=== PATIENT | female | born 1965 | race Caucasian/White ===

== ENCOUNTER → 2020-07-20 | Outpatient (CLI) | payer BC, OTHER ==
--- NOTE | 2020-07-21 09:13 | REP ---
INDICATION: LUMBAR RADICULOPATHY. COMPARISON: None. TECHNIQUE: Sagittal T1, T2, stir images of the lumbar spine obtained. Axial T1 and T2 weighted images obtained. FINDINGS: There is [id number] multilevel degenerative disc disease with loss of disc height and disc desiccation seen diffusely throughout the lumbar spine. Vertebral heights are overall preserved. No nisha malalignments. Conus ends normally at L1 level. Degenerative disc disease is slightly more progressed at the L5-S1 level. On the sagittal T2 weighted images, no limiting canal stenosis. Conus ends normally at L1 level. Schmorl's nodes are seen in the inferior endplates of L1 and L2. On the review of axial images, At L1-2 global disc bulge without significant canal or foraminal narrowing At L2-3 disc bulge with mild canal narrowing and mild bilateral foraminal narrowing. At L3-4 disc bulge with mild canal narrowing and mild bilateral foraminal narrowing. At L4-5 disc bulge with mild canal narrowing and mild bilateral foraminal narrowing. At L5-S1 loss of disc height with mild canal narrowing and [id number] bilateral foraminal narrowing. On the STIR images, no significant stir signal abnormality to suggest soft tissue or ligamentous injury. IMPRESSION: 1. Oydk-kw-[id number] multilevel degenerative disc disease. 2. No limiting canal or foraminal stenosis. No disc herniation identified. <Electronically signed by Harry Porras > 07/21/20 [id number]
== END ==
LOC: M PLARAD 14:42
PROVIDERS: ATTEND Pain Medicine Interventional Pain Medicine
DX: M54.16 Radiculopathy, lumbar region (principal); M51.36 Other intervertebral disc degeneration, lumbar region; M51.37 Other intervertebral disc degeneration, lumbosacral region

== ENCOUNTER → 2020-08-13 | Outpatient (CLI) | payer BC, OTHER ==
--- NOTE | 2020-08-14 16:09 | REPVR ---
PROCEDURE INFORMATION: Exam: MR Left Lower Extremity Joint Without Contrast; Hip Exam date and time: 08/13/2020 2:03 PM Age: 54 years old Clinical indication: Left; Patient HX: Lt hip pain; Additional info: Oa lt hip R/O avn TECHNIQUE: Imaging protocol: MR of the Left lower extremity joint without contrast. Exam focused on the hip. COMPARISON: No relevant prior studies available. FINDINGS: There is mild left hip joint osteoarthrosis. There is no evidence of acute fracture or dislocation. Bone marrow signal is normal. Alignment is anatomic. There is moderate tendinopathy and partial-thickness tearing at the gluteus medius and minimus insertions with associated soft tissue swelling. There is a small amount of loculated fluid in the greater trochanteric bursa. There is mild tendinopathy at the hamstring origins. The visualized muscles and tendons about the hip are otherwise normal normal in appearance. The ligamentum teres and transverse acetabular ligament are intact. There is no significant hip joint effusion. Evaluation of the acetabular labrum is suboptimal without intra-articular contrast. No obvious labral tear is identified. IMPRESSION: 1. No evidence of avascular necrosis. 2. Moderate tendinopathy and partial-thickness tearing at the gluteus medius and minimus insertions with associated soft tissue swelling and greater trochanteric bursitis. 3. Additional findings, as above. Electronically signed by: Wilfredo Steven On 08/14/2020 16:08:57 PM
== END ==
LOC: M RAD 13:14
PROVIDERS: ATTEND Physician Assistant
DX: M16.12 Unilateral primary osteoarthritis, left hip (principal); M70.62 Trochanteric bursitis, left hip

== ENCOUNTER → 2020-08-22 | Outpatient (REF) | payer BC, OTHER ==
[2020-08-23 12:58] LABS: C REACTIVE PROTEIN QUANTITATIV < 0.30 MG/DL (0.00-0.30); RHEUMATOID FACTOR QUANT < 10.0 IU/ML (<15.0)
== END ==
LOC: M LABDRAWC 11:56
PROVIDERS: ATTEND Physician Assistant
DX: M16.12 Unilateral primary osteoarthritis, left hip (principal)

== ENCOUNTER 2020-12-25 20:06 | Emergency (ER) | payer BC, OTHER ==
[~2020-12-25] VITALS: Ht 172.7 cm; Wt 111.4 kg
[2020-12-25] MEDS ORDERED: OTEZ1TAB3 PO (20:15)
[2020-12-25] MEDS ORDERED: LIDOCAINE 2% MDV 20ML VIAL SC ONE (22:15)
--- NOTE | 2020-12-26 00:18 | REPVR ---
PROCEDURE INFORMATION: Exam: XR Left Tibia and Fibula Exam date and time: 12/25/2020 10:49 PM Age: 55 years old Clinical indication: Injury or trauma; Fall; Laceration; Lower leg; Left; Foreign body involvement not specified; Additional info: Fall, extensive laceration TECHNIQUE: Imaging protocol: XR Left tibia and fibula. Views: 2 views. COMPARISON: No relevant prior studies available. FINDINGS: Bones/joints: No acute fracture. No dislocation. Moderate plantar calcaneal spur. Soft tissues: Multiple chronic soft tissue calcifications. Soft tissue wound at the ventral aspect of the lower leg. No foreign body. IMPRESSION: 1. No acute fracture. 2. Soft tissue wound at the ventral aspect of the lower leg. 3. No foreign body. Electronically signed by: Ronny Alfred On 12/26/2020 00:18:05 AM
[2020-12-26] MEDS ORDERED: NEOSPORIN TOP OINT 15GM TOP STA (00:51)
[2020-12-26] MEDS ORDERED: CEPHALEXIN SUSP POWDER 250MG/5ML BTL 100ML PO ONE (00:55)
[2020-12-26] MEDS ORDERED: NORCO 5/325MG TABLET (BULK FOR ED) PO ONE (00:55)
[2020-12-26] MEDS ORDERED: CEPH500C PO (01:10)
[2020-12-26] MEDS ORDERED: CEPHALEXIN 500 MG CAP PO ONE (01:10)
[2020-12-26 01:25] VITALS: BP 147/82
== END 2020-12-26 01:38 | disposition home or self-care (01) ==
LOC: M ED 20:06
DX: S81.812A Laceration without foreign body, left lower leg, initial encounter (principal); W10.8XXA Fall (on) (from) other stairs and steps, initial encounter; Y92.009 Unspecified place in unspecified non-institutional (private) residence as the place of occurrence of the external cause; Y93.9 Activity, unspecified; Y99.9 Unspecified external cause status; Z88.1 Allergy status to other antibiotic agents; Z98.84 Bariatric surgery status

== ENCOUNTER 2021-01-05 10:38 | Emergency (ER) | payer BC, OTHER ==
[~2021-01-05] VITALS: Ht 172.7 cm; Wt 110.0 kg
[~2021-01-05 10:38] MED LIST: CEPH500C PO; OTEZ1TAB3 PO
--- NOTE | 2021-01-05 12:13 | REP ---
INDICATION: recent deep laceration, new tingling left foot COMPARISON: None. TECHNIQUE: Real time compression and duplex Doppler interrogation of the left lower extremity deep venous system is performed, including the right common femoral vein.Compression of the left peroneal and posterior tibial veins is performed. FINDINGS: The left common femoral, superficial femoral and popliteal veins are fully compressible with transducer pressure and demonstrate normal spontaneous and phasic flow, without evidence of deep venous thrombosis.The right common femoral vein demonstrates no thrombus.The visualized left peroneal and posterior tibial veins demonstrate no thrombus. IMPRESSION: No evidence of deep venous thrombosis of the left lower extremity femoral popliteal venous system.No thrombus in the visualized left peroneal and posterior tibial veins. <Electronically signed by Mason King > 01/05/21 [id number]
[2021-01-05 14:21] VITALS: BP 138/76
[2021-01-05] MEDS ORDERED: BACT800T5 PO (14:29)
[2021-01-05] MEDS ORDERED: DIFL150T PO (14:59)
== END 2021-01-05 15:05 | disposition home or self-care (01) ==
LOC: M ED 10:38
DX: Z48.02 Encounter for removal of sutures (principal); L08.9 Local infection of the skin and subcutaneous tissue, unspecified; Z88.1 Allergy status to other antibiotic agents

== ENCOUNTER 2021-01-07 11:06 | Emergency (ER) | payer BC, OTHER ==
[~2021-01-07] VITALS: Ht 172.7 cm; Wt 110.5 kg
[2021-01-07 11:06] VITALS: BP 121/72
[~2021-01-07 11:06] MED LIST changes: +BACT800T5 PO; +DIFL150T PO
[2021-01-07] MEDS ORDERED: DERMABOND TOPICAL SKIN ADHESIVE TOP ONE (12:55)
[2021-01-07] MEDS ORDERED: DIFL150T PO (13:16)
== END 2021-01-07 13:19 | disposition home or self-care (01) ==
LOC: M ED 11:06
DX: T81.31XA Disruption of external operation (surgical) wound, not elsewhere classified, initial encounter (principal); Z48.02 Encounter for removal of sutures; Z79.899 Other long term (current) drug therapy; Z88.1 Allergy status to other antibiotic agents

== ENCOUNTER 2021-01-24 13:39 | Emergency (ER) | payer BC, OTHER ==
[~2021-01-24] VITALS: Ht 172.7 cm; Wt 112.0 kg
[2021-01-24 13:39] VITALS: BP 139/81
== END 2021-01-24 15:50 | disposition left against medical advice (07) ==
LOC: M ED 13:39
DX: Z53.21 Procedure and treatment not carried out due to patient leaving prior to being seen by health care provider (principal)

== ENCOUNTER → 2021-06-01 | Outpatient (REF) | payer OTHER ==
[2021-06-01 11:50] LABS: HEMATOCRIT 40.3 % (36.0-47.0); HEMOGLOBIN 12.6 g/dl (12.0-15.5); MEAN CORPUSCULAR HEMOGLOBIN 29.2 pg (27.0-33.0); MEAN CORPUSCULAR HGB CONC 31.3 g/dl (32.0-36.5); MEAN CORPUSCULAR VOLUME 93.5 fl (80.0-96.0); PLATELET COUNT, AUTOMATED 291 10^3/uL (150-450); RED BLOOD COUNT 4.31 10^6/uL (4.00-5.40); WHITE BLOOD COUNT 5.1 10^3/uL (4.0-10.0)
[2021-06-01 12:25] LABS: ALBUMIN 3.7 GM/DL (3.2-5.2); ALT/SGPT 32 U/L (12-78); BILIRUBIN,TOTAL 0.3 MG/DL (0.2-1.0); BLOOD UREA NITROGEN 8 MG/DL (7-18); CALCIUM LEVEL 9.2 MG/DL (8.5-10.1); CARBON DIOXIDE LEVEL 27 MEQ/L (21-32); CHLORIDE LEVEL 110 MEQ/L (98-107); CHOLESTEROL LEVEL 176 MG/DL (<200); CREATININE FOR GFR 0.71 MG/DL (0.55-1.30); GLOMERULAR FILTRATION RATE > 60.0 (>51); GLUCOSE, FASTING 92 MG/DL (70-100); HDL CHOLESTEROL 64 MG/DL (>40); LDL CHOLESTEROL 95 MG/DL (<100); MAGNESIUM LEVEL 2.1 MG/DL (1.8-2.4); NON-HDL-C 112 MG/DL; POTASSIUM SERUM 4.3 MEQ/L (3.5-5.1); SODIUM LEVEL 144 MEQ/L (136-145); TOTAL PROTEIN 6.7 GM/DL (6.4-8.2); TRIGLYCERIDES LEVEL 86 MG/DL (<150); VITAMIN B12 LEVEL 1289 PG/ML (247-911)
[2021-06-01 12:26] LABS: FOLATE 16.6 NG/ML (>5.4)
[2021-06-01 15:47] LABS: HEMOGLOBIN A1c 5.5 %
== END ==
LOC: M SFHCCLAY 08:40
PROVIDERS: ATTEND Nurse Practitioner Family
DX: Z98.84 Bariatric surgery status (principal); Z13.220 Encounter for screening for lipoid disorders; Z13.1 Encounter for screening for diabetes mellitus; Z13.29 Encounter for screening for other suspected endocrine disorder